=== PATIENT | female | born 1945 | race Caucasian/White ===

== ENCOUNTER 2023-03-22 19:48 | Emergency (ER) | payer OTHER ==
[~2023-03-22] VITALS: Ht 157.5 cm; Wt 61.2 kg
[~2023-03-22 19:48] MED LIST: ACT35
[2023-03-22] MEDS ORDERED: MORPHINE 4 MG INJ. 4 MG/ML VIAL ONE (20:27)
[2023-03-22] MEDS ORDERED: MORPHINE 4 MG INJ. 4 MG/ML VIAL IM ONE (20:30)
[2023-03-22 21:18] VITALS: BP_SYST 124
[2023-03-22] MEDS ORDERED: NAPR-1172 PO (21:40)
== END 2023-03-22 22:14 | disposition home or self-care (01) ==
LOC: SED 19:48
DX: S42.212A Unspecified displaced fracture of surgical neck of left humerus, initial encounter for closed fracture (principal); I10 Essential (primary) hypertension; Z90.710 Acquired absence of both cervix and uterus; W19.XXXA Unspecified fall, initial encounter; Y93.89 Activity, other specified; Y92.89 Other specified places as the place of occurrence of the external cause; Y99.8 Other external cause status
CPT/HCPCS: 99283; 73030; 96372; J2270